=== PATIENT | male | born 1955 | race Caucasian/White ===

== ENCOUNTER 2019-12-27 09:10 | Emergency (ER) | payer OTHER, SELFPAY ==
[2019-12-27 09:10] VITALS: BP 137/76; PULSE 63; RESP 18; TEMP 36.1; O2SAT 97; BMI 27.5
--- NOTE | 2019-12-27 09:34 | CT_ITS ---
STUDY: CT ABDOMEN AND PELVIS WITHOUT CONTRAST REASON FOR EXAM: Male, 64 years old. LT FLANK PAIN RADIATION DOSAGE (If Supplied By Facility): CTDIvol = ( 10.44 ) mGy, DLP = ( 524.09 ) mGycm TECHNIQUE: Transaxial images were obtained from the dome of the diaphragm to the symphysis pubis without oral contrast, and without intravenous contrast. Sagittal and coronal images were reconstructed. Individualized dose optimization techniques were used for this CT. COMPARISON: None. FINDINGS: The visualized lung bases are unremarkable. The visualized portions of the heart are within normal limits. Normal liver. There are multiple gallstones. Normal spleen. Normal pancreas. Normal bilateral adrenal glands. Normal right kidney. 3 mm obstructing stone at the left ureteral vesicle junction with mild ureteral dilatation and hydronephrosis. Multiple nonobstructing left renal stones. Normal visualized stomach. Normal small intestine. Normal colon. There is non-visualization of the appendix. Normal abdominal aorta. Normal inferior vena cava. Normal retroperitoneum. Normal urinary bladder. Normal abdominal wall. Normal osseous structures. CT/Abdomen/Pelvis without Cont IMPRESSION: 3 mm obstructing stone of the left ureter vesicle junction with mild ureteral dilatation and hydronephrosis. Electronically Signed: John Smith MD at 11:00 EDT Tel , Service support ,
--- NOTE | 2019-12-27 09:34 | ED.VIS.GEN ---
History of Present Illness Chief Complaint: Flank Pain Informant: Patient Narrative: Patient presents the emergency department with pain in the left flank. Patient states that he was asleep at approximately 040 0 hours was awoken with a stabbing pain. States eventually seem to get better was able to sleep a little bit more at about 630. He got up to get into a chair. Nothing seemed to make the pain better or worse. He had some cranberry juice. He then had a bout of emesis and now states the pain seemed to be subsiding. He states that nothing wrapped around to the front of his abdomen did not experience any abdominal pain. No change in bowel function. He had a similar discomfort that lasted about an hour about 2 weeks ago while he was out of town on business. Past Medical History - Allergies and Home Meds Allergies/Adverse Reactions: Allergies No Known Allergies Allergy (Verified 12/27/19 09:12) Primary Care Physician: Jaya Grant MD [STAFF PHYSICIAN] - As soon as possible Past Medical History: None Surgical History: noncontributory Lives: Spouse/ Significant Other Drugs: None Review of Systems General: Denies: Chills, Fever, Sweats Eyes: Denies: Visual changes - bilaterally, Diplopia ENT: Denies: Rhinorrhea, Sore throat Cardiovascular: Denies: Chest pain, Palpitations Respiratory: Denies: Dyspnea, Cough, Dyspnea on exertion Gastrointestinal: Denies: Abdominal pain, Nausea, Vomiting, Diarrhea, Melena, Hematochezia Genitourinary: Denies: Dysuria, Hematuria, Frequency Musculoskeletal: Reports: Back pain. Denies: Extremity Pain Skin: Denies: Rash, Wounds Neurological: Denies: Headache, Weakness, Numbness Physical Exam Vital Signs/Narrative: Vital Signs Temp Pulse Resp BP Pulse Ox 12/27/19 09:10 97 F L 63 18 137/76 H 97 Inital Vital Signs reviewed: Yes General: Well nourished, Well developed, No Acute Distress Head: Normocephalic, Atraumatic Eyes: Perrl, EOMI ENT: Moist mucous membranes, No rhinorrhea Neck: Supple, Nontender Cardiovascular: Regular rate, Regular rhythm, No murmurs Respiratory: No distress, CTA bilaterally, Chest nontender Abdomen: Soft, Nontender, Nondistended, Normal bowel sounds Back: Nontender, Normal Inspection Extremities: Nontender, No edema Skin: Normal color, No rash Neurological: Alert, Oriented x3, Cranial nerves II-XII grossly intact, Normal Strength, Normal Sensation Psychological: Normal affect, Normal Mood Diagnostic/Tx/Re-eval Clinical Impression(s) from Imaging Studies Abdomen/Pelvis CT 12/27/19 09:34 IMPRESSION: 3 mm obstructing stone of the left ureter vesicle junction with mild ureteral dilatation and hydronephrosis. Electronically Signed: John Smith MD at 11:00 EDT Tel , Service support , Laboratory Last Values WBC 10.8 K/mm3 (4.4-11.0) 12/27/19 09:20 RBC 5.02 M/mm3 (4.6-6.2) 12/27/19 09:20 Hgb 15.9 g/dL (13.0-16.5) 12/27/19 09:20 Hct 48.4 % (40-54) 12/27/19 09:20 MCV 96.4 fL (80-94) H 12/27/19 09:20 MCH 31.7 pg (27.0-32.0) 12/27/19 09:20 MCHC 32.9 g/dL (32-36) 12/27/19 09:20 RDW Std Deviation 42.2 fl (35.1-43.9) 12/27/19 09:20 RDW Coeff of Emily 11.9 % (11.6-14.6) 12/27/19 09:20 Plt Count 224 K/mm3 (150-450) 12/27/19 09:20 MPV 8.8 fl (6.2-12.0) 12/27/19 09:20 Immature Gran % (Auto) 0.400 % (0.0-0.9) 12/27/19 09:20 Neut % (Auto) 80.7 % (47-70) H 12/27/19 09:20 Lymph % (Auto) 10.4 % (19-41) L 12/27/19 09:20 [place] % (Auto) 3.2 % (0-10) 12/27/19 09:20 Eos % (Auto) 4.7 % (0-5) 12/27/19 09:20 Baso % (Auto) 0.6 % (0-1) 12/27/19 09:20 Absolute Neuts (auto) 8.7 X10^3/uL (2.0-7.7) H 12/27/19 09:20 Absolute Lymphs (auto) 1.12 X10^3/uL (0.83-4.51) 12/27/19 09:20 Nucleated RBC % 0 % (0-5) 12/27/19 09:20 Sodium 137 mmol/L (136-145) 12/27/19 09:20 Potassium 4.4 mmol/L (3.5-5.1) 12/27/19 09:20 Chloride 104 mmol/L (98-107) 12/27/19 09:20 Carbon Dioxide 30.0 mmol/L (21.0-32.0) 12/27/19 09:20 Anion Gap 3 (5-15) L 12/27/19 09:20 BUN 22 mg/dL (7-18) H 12/27/19 09:20 Creatinine 1.06 mg/dL (0.70-1.30) 12/27/19 09:20 Estim Creat Clear Calc 69.91 ml/min 12/27/19 09:20 Est GFR (MDRD) Af Amer 91 mL/min (>60) 12/27/19 09:20 Est GFR (MDRD) Non-Af 75 mL/min (>60) 12/27/19 09:20 BUN/Creatinine Ratio 20.8 RATIO (10-20) H 12/27/19 09:20 Glucose 91 mg/dL (74-106) 12/27/19 09:20 Calcium 9.1 mg/dL (8.5-10.1) 12/27/19 09:20 Urine Color Yellow (Yellow) 12/27/19 11:14 Urine Clarity Clear (Clear) 12/27/19 11:14 Urine pH 6.0 (5.0 - 8.0) 12/27/19 11:14 Ur Specific [place] 1.015 (1.002-1.030) 12/27/19 11:14 Urine Protein Negative mg/dl (Negative) 12/27/19 11:14 Urine Glucose (UA) Normal mg/dl (Normal) 12/27/19 11:14 Urine Ketones Negative mg/dl (Negative) 12/27/19 11:14 Urine Occult Blood 10 /ul (Negative) H 12/27/19 11:14 Urine Nitrite Negative (Negative) 12/27/19 11:14 Urine Bilirubin Negative mg/dL (Negative) 12/27/19 11:14 Urine Urobilinogen Normal mg/dl (Normal) 12/27/19 11:14 Ur Leukocyte Esterase Negative /ul (Negative) 12/27/19 11:14 Urine RBC 0-5 SEEN /hpf (0-5) 12/27/19 11:14 Urine WBC 0 SEEN /hpf (0-5) 12/27/19 11:14 Ur Squamous Epith Cells 0 SEEN /hpf (0-5) 12/27/19 11:14 Urine Bacteria 0 SEEN /hpf (None Seen) 12/27/19 11:14 Urine Mucus 0 SEEN /hpf (<or=2+) 12/27/19 11:14 - Medical Decision Making CT demonstrates a distal ureteral stone on the left with associated hydronephrosis. Plan is outpatient follow-up at this time. Pain and nausea medicine will be written. ED Disposition - Plan for ED Patient: Disposition: Home or Assisted Living Diagnosis: Left ureteral calculus, Renal colic on left side Instructions: ED Renal Stone w Colic Prescriptions: Oxycodone HCl/Acetaminophen [Percocet 5/325] 1 tab PO Q6H PRN PRN 5 Days #20 tab PRN Reason: Pain Prescription Printed Ondansetron [Zofran Odt] 4 mg PO Q8H PRN PRN #12 tab PRN Reason: Nausea Prescription Printed Referrals: Jaya Grant MD [STAFF PHYSICIAN] - As soon as possible
[2019-12-27 09:51] LABS: Absolute Lymphocyte Count 1.12 X10^3/uL (0.83-4.51); Absolute Neutrophil Count 8.7 X10^3/uL (2.0-7.7); Basophil# 0.06 X10^3/uL; Basophil% 0.6 % (0-1); Eosinophils% 4.7 % (0-5); Hematocrit 48.4 % (40-54); Hemoglobin 15.9 g/dL (13.0-16.5); Lymphocyte # 1.12 X10^3/ul (4.0); Lymphocyte % 10.4 % (19-41); Mean Corp Hgb Conc 32.9 g/dL (32-36); Mean Corpuscular Hgb 31.7 pg (27.0-32.0); Mean Corpuscular Volume 96.4 fL (80-94); Mean Platelet Vol. 8.8 fl (6.2-12.0); Monocyte# 0.34 X10^3/uL; Monocyte% 3.2 % (0-10); NRBC Flagged by Analyzer 0 % (0-5); Neutrophil # 8.69 X10^3/uL (2.7-7.7); Neutrophil % 80.7 % (47-70); Platelet Count 224 K/mm3 (150-450); RBC Distribution Width CV 11.9 % (11.6-14.6); RBC Distribution Width SD 42.2 fl (35.1-43.9); Red Blood Count 5.02 M/mm3 (4.6-6.2); White Blood Count 10.8 K/mm3 (4.4-11.0)
[2019-12-27 10:02] LABS: Anion Gap 3 (5-15); BUN 22 mg/dL (7-18); BUN/Creat Ratio 20.8 RATIO (10-20); Calcium,Total 9.1 mg/dL (8.5-10.1); Chloride 104 mmol/L (98-107); Creatinine, Serum 1.06 mg/dL (0.70-1.30); EST Glomerular Filtration Rate 75 mL/min (>60); Est Glom Filt Rate - Afr Amer 91 mL/min (>60); Estimated Creatinine Clearance 69.91 ml/min; Glucose 91 mg/dL (74-106); Potassium 4.4 mmol/L (3.5-5.1); Sodium Level 137 mmol/L (136-145)
[2019-12-27 11:18] LABS: Bacteria 0 SEEN /hpf (None Seen); Mucous, Urine 0 SEEN /hpf (<or=2+); Squamous Epithelial Cells - UA 0 SEEN /hpf (0-5); White Blood Cells 0 SEEN /hpf (0-5)
[2019-12-27 11:20] LABS: Color, Urine Yellow (Yellow); Glucose, Dipstick Normal (Normal); Ketone-Dipstick Negative (Negative); Leukocyte Esterase-Dipstick Negative /ul (Negative); Nitrite-Dipstick Negative (Negative); Occult Blood-Urine 10 /ul (Negative); Protein-Dipstick Negative (Negative); Specific Gravity, Urine 1.015 (1.002-1.030); Urine Bilirubin Dipstick Negative (Negative); Urine Clarity Clear (Clear); Urine Urobilinogen Normal (Normal)
[2019-12-27 11:27] LABS: Red Blood Cells-Urine 0-5 SEEN /hpf (0-5)
[2019-12-27 11:56] VITALS: BP 120/78; PULSE 67; RESP 16; O2SAT 96
== END 2019-12-27 11:58 | disposition home or self-care (01) ==
PROVIDERS: Emergency Provider Emergency Medicine; PCP Family Medicine
DX: N13.2 Hydronephrosis with renal and ureteral calculous obstruction (principal)
CPT/HCPCS: 74176; 80048; 81001; 85025; 99283; A4216

== ENCOUNTER 2022-08-13 23:04 | Emergency (ER) | payer OTHER, SELFPAY ==
[2022-08-13 23:06] VITALS: BP 162/80; PULSE 52; RESP 15; TEMP 36.6; O2SAT 99
--- NOTE | 2022-08-13 23:12 | EKG12_ITS ---
Test Reason : CP Blood Pressure : / mmHG Vent. Rate : 050 BPM Atrial Rate : 050 BPM P-R Int : 208 ms QRS Dur : 152 ms QT Int : 496 ms P-R-T Axes : 056 -51 016 degrees QTc Int : 452 ms Sinus bradycardia Right bundle branch block Left anterior fascicular block Bifascicular block Abnormal ECG Confirmed by DIXON JAMES, LESLY ([id number]), web content editor GIOVANNI SUMMERS ([id number]) on 08/15/2022 9:04:03 AM Referred By: OLGA Confirmed By:LESLY METCALF MD
--- NOTE | 2022-08-13 23:20 | RAD_ITS ---
INDICATION: chest pain EXAMINATION/TECHNIQUE: X-RAY - XR Chest 1 View AP portable. 11:25 PM. COMPARISON: FINDINGS: LINES/DEVICES: None. LUNGS: No consolidation. No pneumothorax. MEDIASTINUM: The aorta is atherosclerotic. CARDIAC SILHOUETTE: Not enlarged. BONES AND SOFT TISSUES: No acute abnormalities. RAD/Chest 1 View (Portable) IMPRESSION: No evidence of active intrathoracic disease. Electronically Signed: Meaghan Sahni MD at 0:03 EDT ,
[2022-08-13 23:25] LABS: Absolute Lymphocyte Count 3.22 X10^3/uL (0.83-4.51); Absolute Neutrophil Count 3.7 X10^3/uL (2.0-7.7); Basophil# 0.05 X10^3/uL; Basophil% 0.7 % (0-1); Eosinophil# 0.15 X10^3/uL; Hematocrit 46.2 % (40-54); Hemoglobin 15.4 g/dL (13.0-16.5); Lymphocyte # 3.22 X10^3/ul (0.83-4.51); Mean Corp Hgb Conc 33.3 g/dL (32-36); Mean Corpuscular Hgb 31.2 pg (27.0-32.0); Mean Corpuscular Volume 93.7 fL (80-94); Mean Platelet Vol. 9.1 fl (6.2-12.0); Monocyte# 0.36 X10^3/uL; Monocyte% 4.8 % (0-10); NRBC Flagged by Analyzer 0 % (0-5); Neutrophil # 3.69 X10^3/uL (2.7-7.7); Neutrophil % 49.2 % (47-70); Platelet Count 212 K/mm3 (150-450); RBC Distribution Width CV 12.6 % (11.6-14.6); RBC Distribution Width SD 43.8 fl (35.1-43.9); Red Blood Count 4.93 M/mm3 (4.6-6.2); White Blood Count 7.5 K/mm3 (4.4-11.0)
[2022-08-13 23:29] VITALS: O2SAT 97; BMI 27.8
[2022-08-13 23:43] LABS: Anion Gap 4 (5-15); BUN 18 mg/dL (7-18); Calcium,Total 9.5 mg/dL (8.5-10.1); Chloride 107 mmol/L (98-107); Creatinine, Serum 1.06 mg/dL (0.70-1.30); EST Glomerular Filtration Rate 74 mL/min (>60); Est Glom Filt Rate - Afr Amer 90 mL/min (>60); Estimated Creatinine Clearance 67.22 ml/min; Glucose 111 mg/dL (74-106); Potassium 3.6 mmol/L (3.5-5.1); Sodium Level 140 mmol/L (136-145); Troponin-I HS (w/2H Reflex) 12 pg/mL (3.0-78.0)
[2022-08-14 00:05] VITALS: BP 132/78; PULSE 50; RESP 15; O2SAT 96
[2022-08-14] MEDS: 0.9% Normal Saline 1,000 ML 999 ML IV (00:14)
[2022-08-14 01:03] LABS: Thyroid Stim Hormone (TSH) < 0.01 uIU/mL (0.358-3.74)
[2022-08-14 01:06] LABS: D-Dimer Quantitative (DVT/PE) 0.42 FEU/ug/m (0.27-0.49)
[2022-08-14 01:19] LABS: BNP,B-Type NATRIURETIC PEPTIDE 16.1 pg/mL (0-100)
[2022-08-14 01:23] LABS: Reflex Troponin-HS? (from REC) Y
[2022-08-14 01:44] VITALS: BP 145/83; PULSE 58; RESP 18; O2SAT 98
[2022-08-14 01:53] LABS: Free T3 1.9 pg/mL (2.18-3.98); T4 Free Direct 0.65 ng/dL (0.76-1.46)
[2022-08-14 02:06] LABS: Troponin-I HS 13 pg/mL (3.0-78.0)
--- NOTE | 2022-08-14 02:56 | ED.VIS.CHEST ---
HPI History of Present Illness Chief Complaint: Chest Pain Informant: patient Narrative Narrative: Patient is a 67-year-old male with history of hypothyroid who takes [place] Thyroid 120 mg daily presenting with chest discomfort. Patient states he feels an ache in the center of his chest and he feels like his heart is pounding. He also notes of the past few days he has had some shortness of breath and feels like he just cannot catch his breath rate. He states he has been more short of breath with minimal exertion such as going up the stairs. He denies any swelling of his legs. Denies history of DVT or PE. Notes over the past year or so he has had some mild sensation of dyspnea on exertion however it has been worse over the past few days. Is been a gradual change. PFSH PFSH Medical History no medical history Home Medications thyroid (pork) 120 mg tablet ([place] Thyroid) 120 mg PO DAILY 08/13/22 [History Last Taken Unknown] Allergy/AdvReac Type Severity Reaction Status Date / Time No Known Allergies Allergy Verified 08/13/22 23:09 Surgical History (Updated 08/13/22 @ 23:31 by Eliu Sanchez) H/O hernia repair Social History Smoking Status: Never smoker ROS ROS ED Constitutional Constitutional ED: Denies chills or fever(s) Eyes Eyes: Denies blurry vision Cardiovascular Cardiovascular: Reports as per HPI and palpitations Respiratory/Chest Respiratory/Chest: Reports dyspnea and dyspnea on exertion; Denies cough Gastrointestinal Gastrointestinal: Denies abdominal pain, nausea or vomiting Musculoskeletal Musculoskeletal: Denies arthralgias or myalgias Integumentary Denies rash Neurologic Neurologic: Denies headache(s) Hematologic/Lymphatic Hematologic/Lymphatic: Denies easy bleeding or easy bruising EXAM Physical Exam Const Vital Signs: 08/13/22 23:06 08/13/22 23:29 08/13/22 23:33 Temperature 97.9 F Temperature Source Temporal Pulse Rate 52 L Respiratory Rate 15 Respiratory Effort Normal Respiratory Pattern Normal Blood Pressure 162/80 H Blood Pressure Mean 107 Pulse Ox 99 97 Oxygen Delivery Method Room Air Room Air 08/14/22 00:05 08/14/22 01:44 08/14/22 03:30 Temperature Temperature Source Pulse Rate 50 L 58 L 51 L Respiratory Rate 15 18 18 Respiratory Effort Respiratory Pattern Blood Pressure 132/78 H 145/83 H 143/59 H Blood Pressure Mean 96 103 Pulse Ox 96 98 100 Oxygen Delivery Method Room Air Room Air Positive well nourished and well developed General Appearance ED: well developed and NAD HEENT Reports moist mucous membranes normocephalic and atraumatic Eyes PERRL and EOMs intact bilaterally Neck supple and no JVD Chest Wall inspection of chest normal and palpation of chest normal Resp normal respiratory effort and clear to auscultation bilaterally Cardio regular rate, regular rhythm and no murmurs Rate: bradycardia Peripheral Pulses: pulses 2+ throughout GI normal to inspection, nondistended, normoactive bowel sounds Extremity normal to inspection General Extremety ED: Negative for edema General Extremity: Negative for edema Neuro oriented x3 Sensorium / Orientation: awake and alert Psych mental status grossly normal Skin no rashes or lesions noted Heart Score History: Slightly/Non-Suspicious ECG: Nonspecific Repolarization Age: >/= 65 years Risk Factors: 1 or 2 Risk Factors Troponin: </= Normal Limit Score: 4 MDM MDM MDM Narrative Medical decision making narrative: Patient is evaluated for an aching chest discomfort with associated dyspnea on exertion and feeling his heart pounding in his chest. Patient's symptoms improved without intervention while in the emergency room. Vital signs are significant for mild bradycardia with a heart rate of 52. EKG shows sinus bradycardia with a bifascicular block. I do not have any prior EKGs to compare to. His work-up in the ER including a D-dimer, CBC, BMP, delta high-sensitivity troponin and BNP are all largely normal. His TSH however is low at less than 0.1 and free T4/T3 mildly low at 0.65 and 1.9 respectively. While this is indicative of hyperthyroid I do not think it is significant enough to cause his degree of symptoms. Patient is informed of these findings and need for close outpatient follow-up for this. He is on [place] Thyroid at baseline. Patient is reevaluated and again has resolution of his symptoms. He states he feels better. Was given IV fluids in the emergency room. Will be discharged home with outpatient follow-up. Counseled that he would benefit /need outpatient cardiac evaluation such as an echocardiogram and/or stress test. He verbalizes agreement understands plan. Discharged home in improved and stable condition. Is given return precautions. Lab Data Attestation: I reviewed the patient's lab results. Labs: Laboratory Results - last 24 hr 06/07/3108/13/22 08/13/22 23:17 23:17 23:17 WBC 7.5 RBC 4.93 Hgb 15.4 Hct 46.2 MCV 93.7 MCH 31.2 MCHC 33.3 RDW Std Deviation 43.8 RDW Coeff of Emily 12.6 Plt Count 212 MPV 9.1 Immature Gran % (Auto) 0.300 Neut % (Auto) 49.2 Lymph % (Auto) 43.0 H [place] % (Auto) 4.8 Eos % (Auto) 2.0 Baso % (Auto) 0.7 Absolute Neuts (auto) 3.7 Absolute Lymphs (auto) 3.22 Nucleated RBC % 0 D-Dimer Quant (PE/DVT) 0.42 Sodium 140 Potassium 3.6 Chloride 107 Carbon Dioxide 29.0 Anion Gap 4 L BUN 18 Creatinine 1.06 Estim Creat Clear Calc 67.22 Est GFR (MDRD) Af Amer 90 Est GFR (MDRD) Non-Af 74 BUN/Creatinine Ratio 17.0 Glucose 111 H Calcium 9.5 Troponin I High Sens 12 B-Natriuretic Peptide TSH Free T4 Free T3 pg/dL 08/13/22 08/13/22 08/13/22 23:17 23:17 23:17 WBC RBC Hgb Hct MCV MCH MCHC RDW Std Deviation RDW Coeff of Emily Plt Count MPV Immature Gran % (Auto) Neut % (Auto) Lymph % (Auto) [place] % (Auto) Eos % (Auto) Baso % (Auto) Absolute Neuts (auto) Absolute Lymphs (auto) Nucleated RBC % D-Dimer Quant (PE/DVT) Sodium Potassium Chloride Carbon Dioxide Anion Gap BUN Creatinine Estim Creat Clear Calc Est GFR (MDRD) Af Amer Est GFR (MDRD) Non-Af BUN/Creatinine Ratio Glucose Calcium Troponin I High Sens B-Natriuretic Peptide 16.1 TSH < 0.01 L Free T4 0.65 L Free T3 pg/dL 1.9 L 08/14/22 01:43 WBC RBC Hgb Hct MCV MCH MCHC RDW Std Deviation RDW Coeff of Emily Plt Count MPV Immature Gran % (Auto) Neut % (Auto) Lymph % (Auto) [place] % (Auto) Eos % (Auto) Baso % (Auto) Absolute Neuts (auto) Absolute Lymphs (auto) Nucleated RBC % D-Dimer Quant (PE/DVT) Sodium Potassium Chloride Carbon Dioxide Anion Gap BUN Creatinine Estim Creat Clear Calc Est GFR (MDRD) Af Amer Est GFR (MDRD) Non-Af BUN/Creatinine Ratio Glucose Calcium Troponin I High Sens 13 B-Natriuretic Peptide TSH Free T4 Free T3 pg/dL Radiography Chest X-Ray - ED: 1 View, Read by ED Physician, Read by Radiologist and No Acute Disease Diagnostic Testing: Clinical Impression(s) from Imaging Studies Chest X-Ray 08/13/22 23:20 IMPRESSION: No evidence of active intrathoracic disease. Electronically Signed: Meaghan Sahni MD at 0:03 EDT Reading Location ID and State: [address] [place] [address] Tel , Service support , Rhythm Strip Rhythm Strip: Sinus Rhythm Rate: 52 Ectopy: None EKG Initial EKG: Attestation: I personally reviewed and interpreted this EKG as follows: Interpretation: Sinus Bradycardia Comments: Sinus bradycardia rate of 50 bpm Right bundle branch block with left anterior fascicular block Nonspecific T wave inversions in V1 and V2 with no reciprocal changes Prior EKG tracings: not available for review Prior: No Prior Differential Diagnosis Chest pain/SOB: pulmonary embolism Reason(s) PE less likely: Positive for Well's <3, D-Dimer negative, not tachycardic and not hypoxic, ACS ACS: Positive for no evidence of ACS based on cardiac biomarkers and CHF Reason(s) CHF less likely: Positive for no significant peripheral edema, no orthopnea, no evidence of fluid overload on CXR and BtNP not significantly elevated over normal/baseline Discharge Plan Triage Chief Complaint: Chest Pain ED Provider: Joyce Lew Dx/Rx/DC Orders Clinical Impression: Heart palpitations, Hypothyroid, [place] (dyspnea on exertion) Instructions: ED Chest Pain, Noncardiac Prescriptions: No Action [place] Thyroid 120 mg tablet 120 mg PO DAILY Label Comments: TAKE 1 TABLET BY MOUTH EVERY DAY IN THE MORNING Primary Care Provider: Dillon Polk Referrals: Dillon Polk MD [Primary Care Provider] - Activity Restrictions/Additional Instructions: Your work-up was largely normal except for signs of hypothyroid. Your TSH was less than 0.1 but your Free T3 and free T4 were low. Please follow-up with your primary care doctor for this and further outpatient cardiac evaluation for your symptoms. Disposition Disposition: Home, Self Care Discharge Date/Time: 08/14/22 03:31
[2022-08-14 03:30] VITALS: BP 143/59; PULSE 51; RESP 18; O2SAT 100
== END 2022-08-14 03:31 | disposition home or self-care (01) ==
PROVIDERS: Emergency Provider Emergency Medicine; PCP Family Medicine; Visit Provider Emergency Medicine
DX: R00.2 Palpitations (principal); R00.1 Bradycardia, unspecified; E03.9 Hypothyroidism, unspecified; R06.02 Shortness of breath; R06.09 Other forms of dyspnea
CPT/HCPCS: 71045; 80048; 83880; 84439; 84443; 84481; 84484; 85025; 85379; 93005; 96360; 99284; J7030; A4216